=== PATIENT | female | born 1970 | race Hispanic/Latino ===

== ENCOUNTER 2019-10-13 07:26 | Emergency (ER) | payer BC ==
[2019-10-13] MEDS ORDERED: SODIUM CHLORIDE 0.9% 1000 ML 1,000 ML ONE (07:53)
[2019-10-13] MEDS ORDERED: ONDANSETRON 4 MG/2 ML INJ ONE (07:53)
[2019-10-13] MEDS ORDERED: ONDANSETRON 4 MG/2 ML INJ IV ONE ×2 (08:02→08:33)
[2019-10-13] MEDS ORDERED: SODIUM CHLORIDE 0.9% 1000 ML 1,000 ML IV ONE ×2 (08:02→08:33)
[2019-10-13] MEDS ORDERED: LORazepam 2 MG/ML VIAL IM ONE (08:16)
[2019-10-13] MEDS ORDERED: FAMOTIDINE 20 MG/2 ML INJ IV ONE (08:33)
--- NOTE | 2019-10-13 08:50 | Emergency Department Report ---
<EVIE LIMA - Last Filed: 10/13/19 10:12> ED Alcohol HPI - General Chief Complaint: Alcohol Stated Complaint: MEDICAL CLEARANCE Time Seen by Provider: 10/13/19 08:16 - Related Data Previous Rx's Medication Instructions Recorded Last Taken Type Magnesium Oxide 400 mg PO BID 3 Days #6 tablet 10/13/19 Unknown Rx Nitrofurantoin [place]/M-Cryst 100 mg PO Q12HR 5 Days #10 capsule 10/13/19 Unknown Rx [Macrobid CAP] Allergies Allergy/AdvReac Type Severity Reaction Status Date / Time No Known Allergies Allergy Verified 10/13/19 07:55 ED Past Medical Hx - Medications Home Medications: Home Medications Medication Instructions Recorded Confirmed Last Taken Type Magnesium Oxide 400 mg PO BID 3 Days #6 tablet 10/13/19 Unknown Rx Nitrofurantoin [place]/M-Cryst 100 mg PO Q12HR 5 Days #10 capsule 10/13/19 Unknown Rx [Macrobid CAP] ED Medical Decision Making - Lab Data Result diagrams: 10/13/19 08:46 10/13/19 08:46 Laboratory Results - last 24 hr 10/13/19 10/13/19 10/13/19 08:46 08:46 08:46 WBC 7.0 RBC 3.81 Hgb 13.1 Hct 38.6 MCV 101 H MCH 34 H MCHC 34 RDW 13.0 L Plt Count 167 Sodium 141 Potassium 4.3 Chloride 103.2 Carbon Dioxide 23 Anion Gap 19 BUN 10 Creatinine 0.5 L Estimated GFR > 60 BUN/Creatinine Ratio 20 Glucose 101 H Calcium 7.6 L Magnesium Total Bilirubin 0.50 AST 76 H ALT 32 Alkaline Phosphatase 93 Total Creatine Kinase CK-MB (CK-2) CK-MB (CK-2) Rel Index Total Protein 6.1 L Albumin 3.7 L Albumin/Globulin Ratio 1.5 Lipase Salicylates < 0.3 L Plasma/Serum Alcohol 10/13/19 10/13/19 10/13/19 08:46 08:46 08:46 WBC RBC Hgb Hct MCV MCH MCHC RDW Plt Count Sodium Potassium Chloride Carbon Dioxide Anion Gap BUN Creatinine Estimated GFR BUN/Creatinine Ratio Glucose Calcium Magnesium 1.60 L Total Bilirubin AST ALT Alkaline Phosphatase Total Creatine Kinase 173 H CK-MB (CK-2) 1.7 CK-MB (CK-2) Rel Index 0.9 Total Protein Albumin Albumin/Globulin Ratio Lipase 40 Salicylates Plasma/Serum Alcohol < 0.01 ED Disposition Clinical Impression: Medical clearance for psychiatric admission, Alcohol abuse, Hypomagnesemia, UTI (urinary tract infection) Alcoholic gastritis Qualifiers: Chronicity: acute Gastritis bleeding: without bleeding Qualified Code(s): K29.20 - Alcoholic gastritis without bleeding Disposition: TO HOME OR SELFCARE Condition: Stable Instructions: Gastritis (ED), Urinary Tract Infection in Women (ED), Abuse of Alcohol (ED), Hypomagnesemia (ED) Additional Instructions: Please follow with her primary care provider for recheck of your magnesium level and 3-4 days. Also recommend follow-up with gastroenterology for further evaluation of your gastritis. If you develop any new or worsening symptoms return to the emergency department Prescriptions: Nitrofurantoin [place]/M-Cryst [Macrobid CAP] 100 mg PO Q12HR 5 Days #10 capsule Magnesium Oxide 400 mg PO BID 3 Days #6 tablet Referrals: PRIMARY [facility] [Referring] - 3-5 Days [facility] [Provider Group] - 3-5 Days <ALLI HELTON - Last Filed: 10/13/19 12:19> ED Alcohol HPI - General Source: patient, family Mode of arrival: Wheelchair Limitations: No Limitations - History of Present Illness Initial Comments: 48-year-old female patient with history of depression, anxiety, Ckifh-Gjbiyiszs-Gzuxq syndrome, and alcohol abuse presents for medical clearance for detox from alcohol today. She states she is to detox at [facility]. She states her last drink was at 7:30 PM last night. She denies any history of alcohol withdrawal seizures, chest pain, shortness of breath, headache, dizziness, vision changes, hematochezia/melena, or hematemesis/coffee ground emesis. She does complain of tremors and nausea and vomiting. Patient denies any SI/HI and states her last detox was in June of this year. Chronic Alcohol Use: Yes Previous Visits for Alcohol Intoxication?: No Recent Trauma: No ED Review of Systems ROS: Stated complaint: MEDICAL CLEARANCE Other details as noted in HPI Comment: All other systems reviewed and negative Gastrointestinal: as per HPI, abdominal pain (epigastric) Genitourinary: dysuria. 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 Absent: scleral icterus - Neck Neck exam: Present: full ROM - Respiratory Respiratory exam: Present: normal lung sounds bilaterally. Absent: respiratory distress - Cardiovascular Cardiovascular Exam: Present: regular rate, normal rhythm. Absent: systolic murmur, diastolic murmur, rubs, gallop - GI/Abdominal GI/Abdominal exam: Present: soft, normal bowel sounds. Absent: distended, tenderness, guarding, rebound, rigid - Rectal Rectal exam: Present: deferred - Extremities Exam Extremities exam: Present: normal inspection. Absent: pedal edema - Back Exam Back exam: Absent: CVA tenderness (R), CVA tenderness (L) - Neurological Exam Neurological exam: Present: alert, oriented X3 - Expanded Neurological Exam Expanded Neurological exam: Present: tremor (noted bilaterally in hands) - Psychiatric Psychiatric exam: Present: normal affect, normal mood. Absent: homicidal ideation, suicidal ideation - Skin Skin exam: Present: warm, dry, intact, normal color. Absent: rash ED Course Vital Signs 10/13/19 10/13/19 10/13/19 07:31 08:51 09:35 Temperature 98.6 F Pulse Rate 127 H 95 H 97 H Respiratory 22 16 16 Rate Blood Pressure 144/92 139/88 127/75 [Right] O2 Sat by Pulse 92 98 100 Oximetry 10/13/19 11:31 Temperature Pulse Rate 90 Respiratory 16 Rate Blood Pressure 148/91 [Right] O2 Sat by Pulse 98 Oximetry - Reevaluation(s) Reevaluation #1: 10/13/19 09:48 Heart rate now 92 in room after 1 L bolus of fluids. Patient states nausea and epigastric pain have resolved with Protonix and Zofran. She denies any further tremors or other symptoms at this time. ED Medical Decision Making - Lab Data Result diagrams: 10/13/19 08:46 10/13/19 08:46 - Medical Decision Making 48-year-old male female patient here today for medical clearance for facility for [facility]. She states she has RE been accepted at this facility. She initially complained of nausea, mild epigastric pain, and tremors. After Ativan, no tonics, and Zofran patient states symptoms have resolved. Patient also complained of dysuria and possibility of a urinary tract infection. She denied any vaginal discharge or bleeding. UA shows obvious UTI. Low magnesium and calcium noted on labs-banana bag and oral mag given. EKG is without acute findings. Patient is medically able for admission to [facility].Will DC with Macrobid and 3 days of oral magnesium. Patient instructed to follow up with her primary care provider for recheck of her magnesium levels and 3-5 days. Discussed strict return precautions detail with patient and patient's who state understanding. Critical care attestation.: If time is entered above; I have spent that time in minutes in the direct care of this critically ill patient, excluding procedure time. ED Disposition Is pt being admited?: No
[2019-10-13] MEDS ORDERED: PANTOPRAZOLE 40 MG INJ IV ONE (08:54)
[2019-10-13] MEDS ORDERED: THIAMINE 100 MG, FOLIC ACID 1 MG, MULTIPLE VITAMIN INJ, ADULT 10 ML in SODIUM CHLORIDE ... IV ONE ×2 (09:30→11:26)
[2019-10-13 09:38] LABS: Alanine Aminotransferase 32 units/L (7-56); Albumin 3.7 g/dL (3.9-5); BUN/Creatinine Ratio 20; Blood Urea Nitrogen 10 mg/dL (7-17); Calcium 7.6 mg/dL (8.4-10.2); Hemolysis Index 4
[2019-10-13 09:45] LABS: Hematocrit 38.6 % (30.3-42.9); Hemoglobin 13.1 gm/dl (10.1-14.3); Mean Corpuscular HGB Conc 34 % (30-34); Mean Corpuscular Volume 101 fl (79-97); Platelet Count 167 K/mm3 (140-440); Red Blood Count 3.81 M/mm3 (3.65-5.03)
[2019-10-13 10:02] LABS: Creatine Kinase MB 1.7 ng/mL (0.0-4.0)
--- NOTE | 2019-10-13 10:14 | XRay Report ---
CHEST 1 VIEW INDICATION: hypoxia. COMPARISON: None FINDINGS: Support devices: None. Heart: Within normal limits. Lungs/Pleura: No acute air space or interstitial disease. Additional findings: None. IMPRESSION: 1. No acute findings. Signer Name: Izaiah Mcginnis MD Signed: 10/13/2019 10:10 AM Workstation Name: [id number]
[2019-10-13] MEDS ORDERED: MAGNESIUM CHLORIDE ER 64 MG TAB PO ONE ×2 (11:26→12:00)
[2019-10-13 11:48] LABS: Bacteria,Urine 1+ /HPF (Negative); Bilirubin,Urine NEG (Negative); Blood,Urine LG (Negative); Color,Urine Yellow (Yellow); Mucus,Urine 1+ /HPF
[2019-10-13 11:50] LABS: HCG Qualitative,Urine Negative (Negative); WBC,Urine > 182.0 /HPF (0.0-6.0)
[2019-10-13 12:30] VITALS: BP 157/92
[2019-10-13 12:40] LABS: Amphetamine Screen,Urine PRESUMPTIVE NEGATIVE; Benzodiazepines Screen,Urine PRESUMPTIVE NEGATIVE; Cannabinoid Screen,Urine PRESUMPTIVE NEGATIVE; Cocaine Screen,Urine PRESUMPTIVE NEGATIVE; Methadone Screen,Urine PRESUMPTIVE NEGATIVE; Opiate Screen,Urine PRESUMPTIVE NEGATIVE
== END 2019-10-13 13:59 | disposition home or self-care (01) ==
LOC: ED 07:26
DX: K29.20 Alcoholic gastritis without bleeding (principal); E83.42 Hypomagnesemia; N39.0 Urinary tract infection, site not specified; F41.9 Anxiety disorder, unspecified; I45.6 Pre-excitation syndrome
CPT/HCPCS: 36415; 71045; 80053; 80307; 81001; 81025; 82550; 82553; 83690; 83735; 85027; 87076; 87086; 87186; 93005; 93010; 96361; 96365; 96366; 96372; 96375; 96376; 99284; C9113; J2060; J2405; J3411; J7030; 80320; G0480